=== PATIENT | male | born 1985 | race Caucasian/White ===

== ENCOUNTER 2020-12-07 08:23 | Emergency (ER) | payer OTHER ==
[~2020-12-07] VITALS: Ht 162.6 cm; Wt 72.7 kg
[~2020-12-07 08:23] MED LIST: ACET-704 PO; ACET-706 PO; BACI28.34 TP; HYDR-3164 PO
[2020-12-07] MEDS ORDERED: LIDOCAINE 2%/EPI 1:100,000 20 ML VIAL. INJ ONE (08:45)
[2020-12-07] MEDS ORDERED: NEOMY/BACITR/POLYMYXIN OINT PACKET. TP ONE (08:45)
[2020-12-07] MEDS ORDERED: DIPH,PERTUSS(ACELL),TET VAC/PF 0.5 ML SYRINGE. VAX IM ONE (09:00)
--- NOTE | 2020-12-07 10:02 | PHYS DOC ---
Past Medical History Past Medical History: Asthma, Other Additional Past Medical Histor: ADHD Past Surgical History: Other Additional Past Surgical Histo: right testie removed Smoking Status: Never Smoker Alcohol Use: Rarely Drug Use: None General Adult EDM: Chief Complaint: LACERATION/AVULSION HPI: HPI: Patient is a 35 year old [f__sex] who presents with [] Review of Systems: Review of Systems: Constitutional: Denies fever or chills. [] Eyes: Denies change in visual acuity. [] HENT: Denies nasal congestion or sore throat. [] Respiratory: Denies cough or shortness of breath. [] Cardiovascular: Denies chest pain or edema. [] GI: Denies abdominal pain, nausea, vomiting, bloody stools or diarrhea. [] : Denies dysuria. [] Musculoskeletal: Denies back pain or joint pain. [] Integument: Denies rash. [] Neurologic: Denies headache, focal weakness or sensory changes. [] Endocrine: Denies polyuria or polydipsia. [] Lymphatic: Denies swollen glands. [] Psychiatric: Denies depression or anxiety. [] Heart Score: Risk Factors: Risk Factors: DM, Current or recent (<one month) smoker, HTN, HLP, family history of CAD, obesity. Risk Scores: Score 0 - 3: 2.5% MACE over next 6 weeks - Discharge Home Score 4 - 6: 20.3% MACE over next 6 weeks - Admit for Clinical Observation Score 7 - 10: 72.7% MACE over next 6 weeks - Early Invasive Strategies Current Medications: Current Medications Medications (Trade) Dose Ordered Sig/Luisana Start Time Stop Time Status Last Admin Dose Admin Diphtheria/ Tetanus/Acell Pertussis (ADACEL TDap SYRINGE) 0.5 ml ONCE ONCE 12/07/20 09:00 12/07/20 09:01 DC Lidocaine/ Epinephrine (LIDOCAINE 2%-EPI 1:100,000 multi-dose) 20 ml 1X ONCE 12/07/20 08:45 12/07/20 08:46 DC 12/07/20 08:51 20 ML Neomycin/ Polymyxin/ Bacitracin (Triple Antibiotic Ointment) 1 pkt 1X ONCE 12/07/20 08:45 12/07/20 08:46 DC 12/07/20 08:45 1 PKT Allergies: Allergies: Allergies Coded Allergies Type Severity Reaction Last Updated Verified No Known Drug Allergies 01/02/14 No Physical Exam: PE: Constitutional: Well developed, well nourished, no acute distress, non-toxic appearance. [] HENT: Normocephalic, atraumatic, bilateral external ears normal, oropharynx moist, no oral exudates, nose normal. [] Eyes: PERRLA, EOMI, conjunctiva normal, no discharge. [] Neck: Normal range of motion, no tenderness, supple, no stridor. [] Cardiovascular:Heart rate regular rhythm, no murmur [] Lungs & Thorax: Bilateral breath sounds clear to auscultation [] Abdomen: Bowel sounds normal, soft, no tenderness, no masses, no pulsatile masses. [] Skin: Warm, dry, no erythema, no rash. [] Back: No tenderness, no CVA tenderness. [] Extremities: No tenderness, no cyanosis, no clubbing, ROM intact, no edema. [] Neurologic: Alert and oriented X 3, normal motor function, normal sensory function, no focal deficits noted. [] Psychologic: Affect normal, judgement normal, mood normal. [] Current Patient Data: Vital Signs: Vital Signs Date Time Temp Pulse Resp B/P (MAP) Pulse Ox O2 Delivery O2 Flow Rate FiO2 12/07/20 08:27 98.2 69 16 159/88 (111) 99 Room Air 98.2 EKG: EKG: [] Radiology/Procedures: Radiology/Procedures: [] Course & Med Decision Making: Course & Med Decision Making Pertinent Labs and Imaging studies reviewed. (See chart for details) [] Dragon Disclaimer: Dragon Disclaimer: This electronic medical record was generated, in whole or in part, using a voice recognition dictation system. Departure Departure Impression: Primary Impression: Laceration of thumb, left Qualified Codes: S61.012A - Laceration without foreign body of left thumb without damage to nail, initial encounter Disposition: 01 DC HOME SELF CARE/HOMELESS Condition: STABLE Referrals: Emilee HARRISON MD (PCP) Patient Instructions: Laceration Care, Adult, [id number] Additional Instructions: Do not soak your wound. You may shower. Clean wound daily with soap and water. Change dressing 2 times daily. Use over the counter antibiotic ointment with each dressing change. Sutures need to be removed in 7-10 days. Present to your family doctor or local urgent care for removal. You may also present to the ED but it will be an additional visit/charge. Use [id number] ibuprofen and or Tylenol for pain or discomfort. VIANEY RASMUSSEN DO Dec 07, 2020 10:02
[2020-12-07 10:25] VITALS: BP 178/81
== END 2020-12-07 10:25 | disposition home or self-care (01) ==
LOC: ER 08:23
DX: S61.012A Laceration without foreign body of left thumb without damage to nail, initial encounter (principal); J45.909 Unspecified asthma, uncomplicated; Z98.890 Other specified postprocedural states; X58.XXXA Exposure to other specified factors, initial encounter; Y93.89 Activity, other specified; Y92.89 Other specified places as the place of occurrence of the external cause; Y99.8 Other external cause status
CPT/HCPCS: 12001; 90471; 90715; 99283; J3490

== ENCOUNTER 2021-10-27 18:28 | Observation (INO) | payer OTHER ==
[~2021-10-27] VITALS: Ht 162.6 cm; Wt 81.7 kg
[2021-10-27] MEDS ORDERED: ONDANSETRON PF 4 MG/2 ML VIAL. IVP ONE (19:15)
[2021-10-27] MEDS ORDERED: IV NORMAL SALINE 1000ML BAG 1,000 ML IV ONE ×3 (19:15→23:45)
--- NOTE | 2021-10-27 19:32 | PHYS DOC ---
Past Medical History Past Medical History: Asthma, Other Additional Past Medical Histor: ADHD Past Surgical History: Other Additional Past Surgical Histo: TESTICULAR TORSION - R REMOVED Smoking Status: Never Smoker Alcohol Use: Rarely Drug Use: None General Adult EDM: Chief Complaint: NAUSEA/VOMITING/DIARRHEA HPI: HPI: Patient is a 36 year old male who presents to the ED today complaining of nausea, vomiting, symptoms began today. Patient states one of his family member a couple days ago of COVID19. He states he received 2 COVID vaccinnes last year. Denies any chest pain fever, abdominal pain, shortness of breath. Review of Systems: Review of Systems: Constitutional: Denies fever or chills. [] Eyes: Denies change in visual acuity. [] HENT: Denies nasal congestion or sore throat. [] Respiratory: Denies cough or shortness of breath. [] Cardiovascular: Denies chest pain or edema. [] GI: Reports nausea and vomiting. Denies abdominal pain, bloody stools or diarrhea. [] : Denies dysuria. [] Musculoskeletal: Denies back pain or joint pain. [] Integument: Denies rash. [] Neurologic: Denies headache, focal weakness or sensory changes. [] Endocrine: Denies polyuria or polydipsia. [] Lymphatic: Denies swollen glands. [] Psychiatric: Denies depression or anxiety. [] Heart Score: C/O Chest Pain: N/A Risk Factors: Risk Factors: DM, Current or recent (<one month) smoker, HTN, HLP, family history of CAD, obesity. Risk Scores: Score 0 - 3: 2.5% MACE over next 6 weeks - Discharge Home Score 4 - 6: 20.3% MACE over next 6 weeks - Admit for Clinical Observation Score 7 - 10: 72.7% MACE over next 6 weeks - Early Invasive Strategies Current Medications: Current Medications Medications (Trade) Dose Ordered Sig/Luisana Start Time Stop Time Status Last Admin Dose Admin Ondansetron HCl (Zofran) 4 mg 1X ONCE 10/27/21 19:15 10/27/21 19:24 DC Sodium Chloride 1,000 ml @ 1,000 mls/hr 1X ONCE 10/27/21 19:15 10/27/21 20:14 Allergies: Allergies: Allergies Coded Allergies Type Severity Reaction Last Updated Verified No Known Drug Allergies 01/02/14 No Physical Exam: PE: Constitutional: Well developed, well nourished, no acute distress, non-toxic appearance. [] HENT: Normocephalic, atraumatic, bilateral external ears normal, oropharynx moist, no oral exudates, nose normal. [] Eyes: PERRLA, EOMI, conjunctiva normal, no discharge. [] Neck: Normal range of motion, no tenderness, supple, no stridor. [] Cardiovascular:Heart rate regular rhythm, no murmur [] Lungs & Thorax: Bilateral breath sounds clear to auscultation [] Abdomen: Bowel sounds normal, soft, no tenderness, no masses, no pulsatile masses. [] Skin: Warm, dry, no erythema, no rash. [] Back: No tenderness, no CVA tenderness. [] Extremities: No tenderness, no cyanosis, no clubbing, ROM intact, no edema. [] Neurologic: Alert and oriented X 3, normal motor function, normal sensory function, no focal deficits noted. [] Psychologic: Affect normal, judgement normal, mood normal. [] Current Patient Data: Vital Signs: Vital Signs Date Time Temp Pulse Resp B/P (MAP) Pulse Ox O2 Delivery O2 Flow Rate FiO2 10/27/21 18:34 98.6 112 16 133/83 (100) 96 Room Air 98.6 EKG: EKG: [] Radiology/Procedures: Radiology/Procedures: []PROCEDURE: CT ABD PELV W/ IV CONTRST ONLY EXAM: CT ABDOMEN/PELVIS WITH CONTRAST. HISTORY: Nausea and vomiting. TECHNIQUE: Computed tomography of the abdomen and pelvis was performed after the intravenous administration of iodinated contrast. One or more of the following individualized dose reduction techniques were utilized for this examination: 1. Automated exposure control. 2. Adjustment of the mA and/or kV according to patient size. 3. Use of iterative reconstruction technique. COMPARISON: None. FINDINGS: Lung windows through the visualized portions of the bases reveal mild atelectasis. Bone windows reveal no suspicious lesions. The liver, gallbladder, pancreas, adrenal glands and kidneys are unremarkable. There are calcified granulomas in the spleen. The appendix is noninflamed. Fluid throughout the colon is consistent with diarrhea. There is mild wall thickening of the ileum which is also fluid-filled. There is no focal stricture or small bowel obstruction. Prominent mesenteric lymph nodes measure up to 1.6 x 0.8 cm and are likely reactive in this setting. There are no clearly pathologically enlarged lymph nodes. IMPRESSION: 1. Mild ileal wall thickening with evidence of diarrhea. Correlate for infectious or inflammatory enterocolitis. Electronically signed by: Solomon Calvo MD (10/27/2021 9:21 PM) [facility] DICTATED and SIGNED BY: HORACIO CALVO MD DATE: 10/27/21 [id number] 0 Course & Med Decision Making: Course & Med Decision Making Pertinent Labs and Imaging studies reviewed. (See chart for details) This is a 36-year-old male patient presented to the ED today complaining of nausea vomiting that began today. Patient denies any abdominal pain. Patient is actively vomiting in the ED. Patient has a family member that a couple days ago with COVID19 CBC, CMP, lipase-no acute findings, UA negative for infection, negative influenz a a and B, PCR Covid test pending CT of the abdomen and pelvis was noted for mild ileal wall thickening with evidence of diarrhea. Correlate for infectious or inflammatory enterocolitis. Patient was given IV fluids in the ED, Zofran. He continued to vomit. He was given Reglan. Improved on the vomiting but still had a couple episodes after the Reglan. Continued IV fluids. Admitted to the hospital. Nazia Disclaimer: Nazia Disclaimer: This electronic medical record was generated, in whole or in part, using a voice recognition dictation system. Departure Departure Impression: Primary Impression: Intractable nausea and vomiting Additional Impression: Enterocolitis Disposition: ADMITTED INPATIENT Condition: STABLE Referrals: Emilee HARRISON MD (PCP) TALITA LISA [employer] Oct 27, 2021 19:32
[2021-10-27 19:47] LABS: BASO % 0 % (0-3); EOS # 0.1 x10^3/uL (0.0-0.7); EOS % 1 % (0-3); HEMATOCRIT 47.7 % (39.0-53.0); HEMOGLOBIN 16.2 g/dL (13.0-17.5); LYMPH # 0.8 x10^3/uL (1.0-4.8); LYMPH % 11 % (24-48); MEAN CORPUSCULAR HEMOGLOBIN 27 pg (25-35); MEAN CORPUSCULAR HGB CONC 34 g/dL (31-37); MEAN CORPUSCULAR VOLUME 80 fL (79-100); MONO # 0.4 x10^3/uL (0.0-1.1); MONO % 6 % (0-9); NEUT # 6.1 x10^3/uL (1.8-7.7); NEUT % 82 % (31-73); PLATELET COUNT 231 x10^3/uL (140-400); RED BLOOD COUNT 5.95 x10^6/uL (4.30-5.70); RED CELL DISTRIBUTION WIDTH 13.3 % (11.5-14.5); WHITE BLOOD COUNT 7.4 x10^3/uL (4.0-11.0)
[2021-10-27 19:56] LABS: CALCIUM 8.6 mg/dL (8.5-10.1); CREATININE 1.1 mg/dL (0.7-1.3); GFR 75.7; POTASSIUM 4.1 mmol/L (3.5-5.1)
[2021-10-27 20:02] LABS: ALBUMIN 3.6 g/dL (3.4-5.0); ALBUMIN/GLOBULIN RATIO 0.9 (1.0-1.7); TOTAL BILIRUBIN 0.8 mg/dL (0.2-1.0); TOTAL PROTEIN 7.7 g/dL (6.4-8.2)
[2021-10-27 20:04] LABS: INFLUENZA A PATIENT NEGATIVE (NEGATIVE); INFLUENZA B PATIENT NEGATIVE (NEGATIVE)
[2021-10-27] MEDS ORDERED: METOCLOPRAMIDE HCL 10 MG/2 ML VIAL. IVP ONE (20:45)
[2021-10-27] MEDS ORDERED: KETOROLAC 30 MG/ML VIAL. IVP ONE (20:45)
[2021-10-27 20:51] LABS: BILIRUBIN,URINE NEGATIVE (NEG); CLARITY,URINE CLEAR; COLOR,URINE YELLOW; NITRITE,URINE NEGATIVE (NEG); PROTEIN,URINE NEGATIVE (NEG-TRACE); UROBILINOGEN,URINE 0.2 mg/dL (0.2 mg/dL)
[2021-10-27 20:58] LABS: BACTERIA,URINE 0 /HPF (0-FEW); RBC,URINE 0 /HPF (0-2); WBC,URINE 0 /HPF (0-4)
[2021-10-27] MEDS ORDERED: IOHEXOL 300 MG/ML 100ML VIAL. IV ONE (21:00)
[2021-10-27 21:01] LABS: BARBITURATES NEG (NEG); BENZODIAZEPINES NEG (NEG); CANNABINOIDS NEG (NEG); COCAINE NEG (NEG); METHADONE NEG (NEG); OPIATES NEG (NEG); PHENCYCLIDINE NEG (NEG)
[2021-10-27 21:02] LABS: AMPHETAMINE/METHAMPHETAMINE NEG (NEG)
--- NOTE | 2021-10-27 21:24 | RAD ---
EXAM: CT ABDOMEN/PELVIS WITH CONTRAST. HISTORY: Nausea and vomiting. TECHNIQUE: Computed tomography of the abdomen and pelvis was performed after the intravenous administ ration of iodinated contrast. One or more of the following individualized dose reduction techniques w ere utilized for this examination: 1. Automated exposure control. 2. Adjustment of the mA and/or kV according to patient size. 3. Use of iterative reconstruction technique. COMPARISON: None. FINDINGS: Lung windows through the visualized portions of the bases reveal mild atelectasis. Bone win dows reveal no suspicious lesions. The liver, gallbladder, pancreas, adrenal glands and kidneys are unremarkable. There are calcified gr anulomas in the spleen. The appendix is noninflamed. Fluid throughout the colon is consistent with diarrhea. There is mild wa ll thickening of the ileum which is also fluid-filled. There is no focal stricture or small bowel obs truction. Prominent mesenteric lymph nodes measure up to 1.6 x 0.8 cm and are likely reactive in this setting. There are no clearly pathologically enlarged lymph nodes. IMPRESSION: 1. Mild ileal wall thickening with evidence of diarrhea. Correlate for infectious or inflammatory ent erocolitis. Electronically signed by: Solomon Calvo MD (10/27/2021 9:21 PM) [facility]
[2021-10-28] MEDS ORDERED: MORPHINE SULFATE 2 MG/ML INJ. IVP PRN (00:45)
[2021-10-28] MEDS ORDERED: ONDANSETRON PF 4 MG/2 ML VIAL. IVP PRN ×2 (00:45→09:00)
[2021-10-28] MEDS ORDERED: IV NORMAL SALINE 1000ML BAG 1,000 ML IV ONE ×2 (00:45→09:00)
[2021-10-28] MEDS ORDERED: ACETAMINOPHEN 325 MG TABLET. PO PRN ×2 (00:45→09:00)
[2021-10-28] MEDS ORDERED: METOCLOPRAMIDE HCL 10 MG/2 ML VIAL. IVP PRN (00:45)
[2021-10-28 01:03] VITALS: BP 98/59
[2021-10-28] MEDS ORDERED: DEXT10TA23 PO (01:41)
[2021-10-28 07:00] VITALS: BP 93/47
[2021-10-28] MEDS ORDERED: SENNOSIDES/DOCUSATE 8.6/50MG TABLET. PO SCH (09:00)
[2021-10-28] MEDS ORDERED: MORPHINE SULFATE 2 MG/ML INJ. IV PRN ×2 (09:00)
[2021-10-28] MEDS ORDERED: ZOLPIDEM 5 MG TABLET. PO PRN (09:00)
[2021-10-28] MEDS ORDERED: CALCIUM CARBONATE 500 MG TAB.CHEW PO PRN (09:00)
[2021-10-28] MEDS ORDERED: PROCHLORPERAZINE 10 MG/2 ML VIAL. IVP PRN (09:00)
[2021-10-28] MEDS ORDERED: ENOXAPARIN 40 MG/0.4 ML SYRINGE. SQ SCH (09:00)
[2021-10-28] MEDS ORDERED: ELECTROLYTE (NON-ICU) PROTOCOL. MC PRN (09:00)
--- NOTE | 2021-10-28 10:47 | PDOC1 ---
History and Physical Date of Service: DOS: DATE: 10/28/21 TIME: 10:44 Chief Complaint: Chief Complain: N/V History of Present Illness: HPI: Patient is a 36 year old male who presents to the ED today complaining of nausea, vomiting, symptoms began today. Patient reports his son is also having similar symptoms. Patient states one of his family member a couple days ago of COVID19. He states he received 2 COVID vaccinnes last year. Denies any chest pain fever, abdominal pain, shortness of breath Past Medical/Surgical History: PMH/PSH: Past Medical History: Asthma, Other Additional Past Medical Histor: ADHD Past Surgical History: Other Additional Past Surgical Histo: TESTICULAR TORSION - R REMOVED Smoking Status: Never Smoker Alcohol Use: Rarely Drug Use: None Allergies: Allergies: Coded Allergies: No Known Drug Allergies (Unverified , 01/02/14) Family History: Family History: HTN Current Medications: Current Medications Current Medications Sodium Chloride 1,000 ml @ 1,000 mls/hr 1X ONCE IV Last administered on 10/27/21at 19:28; Start 10/27/21 at 19:15; Stop 10/27/21 at 20:14; Status DC Ondansetron HCl (Zofran) 4 mg 1X ONCE IVP Last administered on 10/27/21at 19:39; Start 10/27/21 at 19:15; Stop 10/27/21 at 19:24; Status DC Sodium Chloride 1,000 ml @ 1,000 mls/hr 1X ONCE IV Last administered on 10/27/21at 21:05; Start 10/27/21 at 20:45; Stop 10/27/21 at 21:44; Status DC Ketorolac Tromethamine (Toradol 30mg Vial) 30 mg 1X ONCE IVP Last administered on 10/27/21at 21:06; Start 10/27/21 at 20:45; Stop 10/27/21 at 20:46; Status DC Metoclopramide HCl (Reglan Vial) 10 mg 1X ONCE IVP Last administered on 10/27/21at 21:09; Start 10/27/21 at 20:45; Stop 10/27/21 at 20:46; Status DC Iohexol (Omnipaque 300 Mg/ml) 75 ml 1X ONCE IV Last administered on 10/27/21at 20:56; Start 10/27/21 at 21:00; Stop 10/27/21 at 21:01; Status DC Sodium Chloride 1,000 ml @ 1,000 mls/hr 1X ONCE IV Last administered on 10/27/21at 23:20; Start 10/27/21 at 23:45; Stop 10/28/21 at 00:44; Status DC Ondansetron HCl (Zofran) 4 mg PRN Q8HRS PRN IVP NAUSEA/VOMITING; Start 10/28/21 at 00:45; Stop 10/29/21 at 00:44 Morphine Sulfate (Morphine Sulfate) 2 mg PRN Q2HR PRN IVP PAIN; Start 10/28/21 at 00:45; Stop 10/29/21 at 00:44 Acetaminophen (Tylenol) 650 mg PRN Q4HRS PRN PO FEVER > 100.3'F; Start 10/28/21 at 00:45; Stop 10/29/21 at 00:44 Sodium Chloride 1,000 ml @ 125 mls/hr 1X ONCE IV Last administered on 10/28/21at 01:47; Start 10/28/21 at 00:45; Stop 10/28/21 at 08:44; Status DC Metoclopramide HCl (Reglan Vial) 10 mg PRN Q6HRS PRN IVP NAUSEA/VOMITING; Start 10/28/21 at 00:45 Sodium Chloride 1,000 ml @ 100 mls/hr 1X ONCE IV Last administered on 10/28/21at 10:11; Start 10/28/21 at 09:00; Stop 10/28/21 at 18:59 Ondansetron HCl (Zofran) 4 mg PRN Q6HRS PRN IVP NAUSEA/VOMITING; Start 10/28/21 at 09:00 Prochlorperazine Edisylate (Compazine) 10 mg PRN Q6HRS PRN IVP NAUSEA/VOMITING; Start 10/28/21 at 09:00 Calcium Carbonate/ Glycine (Tums) 500 mg PRN Q3HRS PRN PO UPSET STOMACH; Start 10/28/21 at 09:00 Zolpidem Tartrate (Ambien) 5 mg PRN QHS PRN PO INSOMNIA, MAY REPEAT IN 1HR; Start 10/28/21 at 09:00 Info (Non-Icu Electrolyte Protocol) 1 ea PRN DAILY PRN MC SEE COMMENTS; Start 10/28/21 at 09:00 Morphine Sulfate (Morphine Sulfate) 1 mg PRN Q1HR PRN IV PAIN; Start 10/28/21 at 09:00 Morphine Sulfate (Morphine Sulfate) 2 mg PRN Q1HR PRN IV PAIN; Start 10/28/21 at 09:00 Acetaminophen (Tylenol) 650 mg PRN Q6HRS PRN PO Headaches, Temp > 101.5F; Start 10/28/21 at 09:00 Senna/Docusate Sodium (Senna Plus) 1 tab BID PO ; Start 10/28/21 at 09:00 Enoxaparin Sodium (Lovenox 40mg Syringe) 40 mg Q24H SQ ; Start 10/28/21 at 09:00 Active Scripts Active Polysporin Topical Oint (Bacitracin/Polymyxin B Sulfate) 28.3 Gm Oint...g. 1 Shelley TP TID DIRECTED BY PHYSICIAN Reported Adderall 10 Mg Tablet (Dextroamphetamine/Amphetamine) 10 Mg Tablet 10 Mg PO DAILY ROS: Review of Systems Review of System Unless noted in HPI 14 point review systems negative Physical Exam: Vital Signs: Vital Signs Date Time Temp Pulse Resp B/P (MAP) Pulse Ox O2 Delivery O2 Flow Rate FiO2 10/28/21 08:16 Room Air 10/28/21 07:00 97.9 94 17 93/47 (62) 97 97.9 Physcial Exam: GEN: No apparent distress. Alert and oriented HEENT: Normal cephalic, atraumatic, external auditory canals are patent EYES: Extraocular muscles are intact, pupil are equally round and reactive to light and accommodation MUSCULOSKELETAL: Well developed , well nourished, good range of motion ENDOCRINE: No thyromegaly was palpated LYMPHATICS: No cervical chain or axillary nodes were noted HEMATOPOIETIC: No bruising NECK: Supple, no JVD, no thyromegaly was noted LUNGS: Clear to auscultation in all lung hearn without rhonchi or wheezing HEART: RRR, S!, S2 present. Peripheral pulses intact, no obvious murmurs noted ABDOMEN: Soft, nontender. Positive bowel sounds, no organomegaly, normal bowel sounds EXTREMITIES: Without clubbing, cyanosis, or edema. Pedal pulses intact. Negative Homans sign NEUROLOGIC: Normal speech and tone. A&O x 3, moves all extremities, no obvious focal deficits PSYCHIATRIC: Normal affect, normal mood. Stable SKIN: No ulcerations or rashes, good skin turgor, no jaundice VASCULAR: Good capillary refill, neurovascular bundle appears to be intact Labs: Labs: Laboratory Tests Test 10/27/21 19:10 10/27/21 19:26 Urine Collection Type Unknown Urine Color Yellow Urine Clarity Clear Urine pH 6.0 (<5.0-8.0) Urine Specific [place] 1.025 (1.000-1.030) Urine Protein Negative mg/dL (NEG-TRACE) Urine Glucose (UA) Negative mg/dL (NEG) Urine Ketones (Stick) Negative mg/dL (NEG) Urine Blood Negative (NEG) Urine Nitrite Negative (NEG) Urine Bilirubin Negative (NEG) Urine Urobilinogen Dipstick 0.2 mg/dL (0.2 mg/dL) Urine Leukocyte Esterase Negative (NEG) Urine RBC 0 /HPF (0-2) Urine WBC 0 /HPF (0-4) Urine Bacteria 0 /HPF (0-FEW) Urine Mucus Slight /LPF Urine Opiates Screen Neg (NEG) Urine Methadone Screen Neg (NEG) Urine Barbiturates Neg (NEG) Urine Phencyclidine Screen Neg (NEG) Urine Amphetamine/Methamphetamine Neg (NEG) Urine Benzodiazepines Screen Neg (NEG) Urine Cocaine Screen Neg (NEG) Urine Cannabinoids Screen Neg (NEG) Urine Ethyl Alcohol Neg (NEG) White Blood Count 7.4 x10^3/uL (4.0-11.0) Red Blood Count 5.95 x10^6/uL (4.30-5.70) Hemoglobin 16.2 g/dL (13.0-17.5) Hematocrit 47.7 % (39.0-53.0) Mean Corpuscular Volume 80 fL (79-100) Mean Corpuscular Hemoglobin 27 pg (25-35) Mean Corpuscular Hemoglobin Concent 34 g/dL (31-37) Red Cell Distribution Width 13.3 % (11.5-14.5) Platelet Count 231 x10^3/uL (140-400) Neutrophils (%) (Auto) 82 % (31-73) Lymphocytes (%) (Auto) 11 % (24-48) Monocytes (%) (Auto) 6 % (0-9) Eosinophils (%) (Auto) 1 % (0-3) Basophils (%) (Auto) 0 % (0-3) Neutrophils # (Auto) 6.1 x10^3/uL (1.8-7.7) Lymphocytes # (Auto) 0.8 x10^3/uL (1.0-4.8) Monocytes # (Auto) 0.4 x10^3/uL (0.0-1.1) Eosinophils # (Auto) 0.1 x10^3/uL (0.0-0.7) Basophils # (Auto) 0.0 x10^3/uL (0.0-0.2) Sodium Level 140 mmol/L (136-145) Potassium Level 4.1 mmol/L (3.5-5.1) Chloride Level 102 mmol/L (98-107) Carbon Dioxide Level 26 mmol/L (21-32) Anion Gap 12 (6-14) Blood Urea Nitrogen 21 mg/dL (8-26) Creatinine 1.1 mg/dL (0.7-1.3) Estimated GFR (Cockcroft-Gault) 75.7 BUN/Creatinine Ratio 19 (6-20) Glucose Level 137 mg/dL (70-99) Calcium Level 8.6 mg/dL (8.5-10.1) Total Bilirubin 0.8 mg/dL (0.2-1.0) Aspartate Amino Transf (AST/SGOT) 13 U/L (15-37) Alanine Aminotransferase (ALT/SGPT) 28 U/L (16-63) Alkaline Phosphatase 92 U/L (46-116) Total Protein 7.7 g/dL (6.4-8.2) Albumin 3.6 g/dL (3.4-5.0) Albumin/Globulin Ratio 0.9 (1.0-1.7) Lipase 58 U/L (73-393) Ethyl Alcohol Level < 10 mg/dL (0-10) Influenza Type A Antigen Negative (NEGATIVE) Influenza Type B Antigen Negative (NEGATIVE) Laboratory Tests Test 10/27/21 19:10 10/27/21 19:26 Urine Collection Type Unknown Urine Color Yellow Urine Clarity Clear Urine pH 6.0 (<5.0-8.0) Urine Specific [place] 1.025 (1.000-1.030) Urine Protein Negative mg/dL (NEG-TRACE) Urine Glucose (UA) Negative mg/dL (NEG) Urine Ketones (Stick) Negative mg/dL (NEG) Urine Blood Negative (NEG) Urine Nitrite Negative (NEG) Urine Bilirubin Negative (NEG) Urine Urobilinogen Dipstick 0.2 mg/dL (0.2 mg/dL) Urine Leukocyte Esterase Negative (NEG) Urine RBC 0 /HPF (0-2) Urine WBC 0 /HPF (0-4) Urine Bacteria 0 /HPF (0-FEW) Urine Mucus Slight /LPF Urine Opiates Screen Neg (NEG) Urine Methadone Screen Neg (NEG) Urine Barbiturates Neg (NEG) Urine Phencyclidine Screen Neg (NEG) Urine Amphetamine/Methamphetamine Neg (NEG) Urine Benzodiazepines Screen Neg (NEG) Urine Cocaine Screen Neg (NEG) Urine Cannabinoids Screen Neg (NEG) Urine Ethyl Alcohol Neg (NEG) White Blood Count 7.4 x10^3/uL (4.0-11.0) Red Blood Count 5.95 x10^6/uL (4.30-5.70) Hemoglobin 16.2 g/dL (13.0-17.5) Hematocrit 47.7 % (39.0-53.0) Mean Corpuscular Volume 80 fL (79-100) Mean Corpuscular Hemoglobin 27 pg (25-35) Mean Corpuscular Hemoglobin Concent 34 g/dL (31-37) Red Cell Distribution Width 13.3 % (11.5-14.5) Platelet Count 231 x10^3/uL (140-400) Neutrophils (%) (Auto) 82 % (31-73) Lymphocytes (%) (Auto) 11 % (24-48) Monocytes (%) (Auto) 6 % (0-9) Eosinophils (%) (Auto) 1 % (0-3) Basophils (%) (Auto) 0 % (0-3) Neutrophils # (Auto) 6.1 x10^3/uL (1.8-7.7) Lymphocytes # (Auto) 0.8 x10^3/uL (1.0-4.8) Monocytes # (Auto) 0.4 x10^3/uL (0.0-1.1) Eosinophils # (Auto) 0.1 x10^3/uL (0.0-0.7) Basophils # (Auto) 0.0 x10^3/uL (0.0-0.2) Sodium Level 140 mmol/L (136-145) Potassium Level 4.1 mmol/L (3.5-5.1) Chloride Level 102 mmol/L (98-107) Carbon Dioxide Level 26 mmol/L (21-32) Anion Gap 12 (6-14) Blood Urea Nitrogen 21 mg/dL (8-26) Creatinine 1.1 mg/dL (0.7-1.3) Estimated GFR (Cockcroft-Gault) 75.7 BUN/Creatinine Ratio 19 (6-20) Glucose Level 137 mg/dL (70-99) Calcium Level 8.6 mg/dL (8.5-10.1) Total Bilirubin 0.8 mg/dL (0.2-1.0) Aspartate Amino Transf (AST/SGOT) 13 U/L (15-37) Alanine Aminotransferase (ALT/SGPT) 28 U/L (16-63) Alkaline Phosphatase 92 U/L (46-116) Total Protein 7.7 g/dL (6.4-8.2) Albumin 3.6 g/dL (3.4-5.0) Albumin/Globulin Ratio 0.9 (1.0-1.7) Lipase 58 U/L (73-393) Ethyl Alcohol Level < 10 mg/dL (0-10) Influenza Type A Antigen Negative (NEGATIVE) Influenza Type B Antigen Negative (NEGATIVE) Assessment/Plan Assessment/Plan Nausea vomiting likely secondary to viral enteritis -1 day history nausea vomiting no p.o. intake -Treat symptomatically provide fluids -Lab work pretty unremarkable, imaging pretty unremarkable as well -Advance diet as tolerated -DVT prophylaxis -No home meds to resume per patient Justifications for Admission Other Justification JANET VEGA MD Oct 28, 2021 10:47
[2021-10-28] MEDS ORDERED: ONDA4TAB12 PO (10:49)
--- NOTE | 2021-10-28 10:52 | PDOC3 ---
[facility]-Discharge Summary Date of Admission: Date of Admission: Oct 28, 2021 Date of Discharge: Date of Discharge: Oct 28, 2021 Admission Diagnosis: Problems: (1) Intractable nausea and vomiting Hospital Course: Hospital Course: Patient is a 36 year old male who presents to the ED today complaining of nausea, vomiting, symptoms began today. Patient reports his son is also having similar symptoms. Patient states one of his family member a couple days ago of COVID19. He states he received 2 COVID vaccinnes last year. Denies any chest pain fever, abdominal pain, shortness of breath Overnight patient symptoms notably improved with fluids. Morning he said he had no vomiting anymore no diarrhea. No abdominal pain either. He is ready for discharge. Will send home today provide as needed Zofran prescription. Greater than 30 minutes spent on discharge. 17 minutes advance care plan Disposition: Disposition/Orders: D/C to Home Activity: Activity: Resume previous activity Diet: Diet: other (adat) Medications: Home Meds Active Scripts Ondansetron (ONDANSETRON ODT) 4 Mg Tab.rapdis, 1 TAB PO PRN Q6-8HRS for N/V for 10 Days, #20 TAB Prov:JANET VEGA MD 10/28/21 Bacitracin/Polymyxin B Sulfate (POLYSPORIN TOPICAL OINT) 28.3 Gm Oint...g., 1 JILLIAN TP TID for WOUND CARE, #1 TUBE DIRECTED BY PHYSICIAN Prov:DORI LANGLEY MD 02/26/16 Reported Medications Dextroamphetamine/Amphetamine (ADDERALL 10 MG TABLET) 10 Mg Tablet, 10 MG PO DAILY for ADD, TAB 10/28/21 Scheduled Bacitracin/Polymyxin B Sulfate (Polysporin Topical Oint), 1 JILLIAN TP TID Dextroamphetamine/Amphetamine (Adderall 10 Mg Tablet), 10 MG PO DAILY, (Reported ) Ondansetron (Ondansetron Odt), 1 TAB PO PRN Q6-8HRS Justicifation of Admission Dx: Justifications for Admission: Justification of Admission Dx: Yes (intractable n/v) JANET VEGA MD Oct 28, 2021 10:52
[2021-10-28 11:00] VITALS: BP 106/58
--- NOTE | 2021-10-28 12:04 | NUR ---
SW following. Discussed with RN, pt from home with family, room air, clear liquid diet. Discharge order for home with self care. RN advised no SW needs.
--- NOTE | 2021-10-28 15:30 | NUR ---
Pt left unit at 1530 by ambulation via private vehicle. Pt's IV removed without complication, VSS. Discharge paperwork discussed with pt. Pt verbalizes understanding.
== END 2021-10-28 15:30 | disposition home or self-care (01) ==
LOC: ER 18:28 → INTOOBSV 22:34 → 5 NORTH 22:34
PROVIDERS: ADMIT Student in an Organized Health Care Education/Training Program; ATTEND Student in an Organized Health Care Education/Training Program
DX: R11.2 Nausea with vomiting, unspecified (principal); Z20.822 Contact with and (suspected) exposure to COVID-19; K52.9 Noninfective gastroenteritis and colitis, unspecified; A08.4 Viral intestinal infection, unspecified; J45.909 Unspecified asthma, uncomplicated; F90.9 Attention-deficit hyperactivity disorder, unspecified type; Z79.899 Other long term (current) drug therapy; Z98.890 Other specified postprocedural states
CPT/HCPCS: 74177; 80053; 80307; 81001; 83690; 85025; 87428; 96361; 96372; 96374; 96375; 99285; G0378; G0480; J1650; J1885; J2405; J2765; J7030; Q9967; U0003; G0379